=== PATIENT | female | born 1985 | race Caucasian/White ===

== ENCOUNTER → 2018-10-18 16:33 | Outpatient (CLI) | payer OTHER, SELFPAY ==
--- NOTE | 2018-10-18 | DI.MRI.S_ITS ---
PROCEDURE: MR KNEE LT WO CON INDICATIONS: Effusion, left knee TECHNIQUE: Noncontrast sagittal PD fast spin echo and T2 fast spin echo with fat saturation, sagittal 3-D FLASH with fat saturation; coronal T1 spin echo and PD fast spin echo with fat saturation, and axial PD fast spin echo with fat saturation through the knee. COMPARISON: None. FINDINGS: Image quality: Diagnostic. Bones and joint: There is no acute fracture or dislocation. Liver, there is mild focal marrow edema evident on the periphery of the medial femoral condyle. No definite additional areas of marrow edema are appreciated. No suspicious osseous lesions are evident. Moderate-sized bone island is identified on the anterior aspect of the proximal tibia near the tibial tubercle. Additional smaller bone islands are present involving the proximal tibia, as well. There is a very large knee joint effusion with an associated very small Ivy's cyst. Mild edema about the anterior margin of the knee is evident. The Ivy's cyst may be leaking given adjacent edema. Irregularity of the hyaline articular cartilage with him on the patellofemoral compartment is present, particularly along the lateral patellar facet with associated small full thickness cartilaginous defects appreciated. No large cartilaginous defects are identified. Cruciate ligaments: The anterior and posterior cruciate ligaments are intact. Menisci: No displaced tears of the medial and lateral menisci are evident. The posterior root ligaments are intact. Medial structures: The medial collateral ligament is intact. Edema about the medial collateral ligament is present with a small amount of fluid contained within its corresponding bursa and mild irregularity along the anterior margin of this ligament. There is a medial patellar plica. The semimembranosus tendon insertion is mildly edematous, but intact. The imaged portions of the pes anserinus tendons are unremarkable. No significant fluid is contained within the pes anserinus bursa. Lateral structures: The popliteal tendon is intact. The lateral collateral ligament proper (fibular collateral ligament) and the proximal tibiofibular ligaments are intact. The distal aspect of the biceps femoris tendon and the iliotibial band are intact. Anterior structures: The quadriceps and patellar tendons are intact. There is no significant edema in the infrapatellar fat pad. Other: Incidental note is made of edema extending along the deep fascia plane between the soleus and gastrocnemius muscles. IMPRESSION: 1. Mild bone contusion of the medial femoral condyle without associated fracture. 2. Low-grade medial collateral ligament sprain. 3. Mild distal semimembranosus tendinopathy. 4. Early patellofemoral chondromalacia. 5. Small medial patellar plica. 6. Prominent knee joint effusion with a probable leaking Ivy's cyst. 7. Edema is noted between the proximal soleus and gastrocnemius muscles. If there is clinical concern for a plantaris tendon rupture, please consider MRI of the left lower leg for further evaluation. Dictated by: Ky Arnett M.D. on 10/19/2018 at 8:42 Approved by: Ky Arnett M.D. on 10/19/2018 at 8:55
== END ==
PROVIDERS: Visit Provider General Practice
DX: M25.462 Effusion, left knee (principal); S80.02XA Contusion of left knee, initial encounter; S83.412A Sprain of medial collateral ligament of left knee, initial encounter; M22.42 Chondromalacia patellae, left knee; M67.52 Plica syndrome, left knee
CPT/HCPCS: 73721